=== PATIENT | male | born 1985 | race Caucasian/White ===

== ENCOUNTER 2020-11-16 19:30 | Emergency (ER) | payer OTHER ==
[~2020-11-16] VITALS: Ht 182.9 cm; Wt 83.9 kg
== END 2020-11-16 21:40 | disposition home or self-care (01) ==
LOC: ER 19:30
DX: L03.116 Cellulitis of left lower limb (principal); S80.812A Abrasion, left lower leg, initial encounter; W45.8XXA Other foreign body or object entering through skin, initial encounter; Y93.89 Activity, other specified; Y92.89 Other specified places as the place of occurrence of the external cause; Y99.8 Other external cause status

== ENCOUNTER 2025-07-01 01:51 | Emergency (ER) | payer OTHER ==
[~2025-07-01] VITALS: Ht 182.9 cm; Wt 79.4 kg
[2025-07-01] MEDS ORDERED: 0.9 % SODIUM CHLORIDE 1,000 ML IV SCH (02:15)
[2025-07-01] MEDS ORDERED: 0.9 % SODIUM CHLORIDE 1,000 ML IV ONE (02:15)
[2025-07-01] MEDS ORDERED: ONDANSETRON HCL 2 MG/ML VIAL IV ONE (02:15)
[2025-07-01] MEDS ORDERED: FAMOtidine 10 MG/ML (4ML VIAL) IV ONE (02:30)
[2025-07-01] MEDS ORDERED: KETOROLAC TROMETHAMINE 15 MG VIAL IU ONE (02:30)
[2025-07-01] MEDS ORDERED: THIAMINE HCL 100 MG/ML 2 ML VIAL IV ONE (02:30)
[2025-07-01] MEDS ORDERED: KETOROLAC TROMETHAMINE 30 MG VIAL ONE (03:41)
[2025-07-01] MEDS ORDERED: THIAMINE HCL 100 MG/ML 2 ML VIAL ONE (03:42)
[2025-07-01] MEDS ORDERED: FAMOTIDINE/PF 20 MG/2 ML VIAL ONE (03:42)
[2025-07-01] MEDS ORDERED: ONDANSETRON HCL 2 MG/ML VIAL ONE ×3 (03:42→08:03)
[2025-07-01 04:23] LABS: BASO % 0.2 % (0.1-1.2); EOS # 0.00 (0.04-0.54); EOS % 0.0 % (0.7-7.0); LYMPH # 0.68 (1.18-3.74); LYMPH % 5.5 % (19.3-53.1); MEAN PLATELET VOLUME 10.10 fl (9.4-12.4); MONO # 0.73 (0.24-0.82); MONO % 6.0 % (4.7-12.5); NEUT # 10.80 (1.56-6.13); NEUT % 88.1 % (34.0-71.1); RED CELL DISTRIBUTION WIDTH 12.8 % (11.6-14.4)
[2025-07-01 04:38] LABS: INR < 0.93
[2025-07-01 04:41] LABS: ALT/SGPT 57.0 U/L (12-78); AST/SGOT 56.0 U/L (15-37); BILIRUBIN TOTAL 2.17 mg/dL (0.3-1.2); BUN CREA RATIO 11.0 (7.0-25.0); CREATININE SERUM 1.5 mg/dL (0.70-1.30); GFR 52.66; GLOBULINA 3.9 G/DL (2.4-3.5); GLUCOSE FASTING 192.0 mg/dL (65-100); OSMOLALITY SERUM 275.0 MOSM/KG (275-295)
[2025-07-01] MEDS ORDERED: PEPCID AC20 MG PO (06:55)
== END 2025-07-01 09:06 | disposition home or self-care (01) ==
LOC: ER 01:52
PROVIDERS: General Practice
DX: K85.90 Acute pancreatitis without necrosis or infection, unspecified (principal); R11.2 Nausea with vomiting, unspecified; F10.929 Alcohol use, unspecified with intoxication, unspecified; R11.10 Vomiting, unspecified
CPT/HCPCS: 36415; 74177; 93005; Q9965